=== PATIENT | female | born 1960 | race Caucasian/White ===

== ENCOUNTER 2019-10-14 20:34 | Emergency (ER) | payer MEDICARE, MEDICAID ==
[~2019-10-14] VITALS: Ht 152.5 cm; Wt 85.0 kg
[~2019-10-14 20:34] MED LIST: ALBU8.5H2; ALPR0.25 PO; ARIP5TAB13 PO; AZEL137S2; CIPR500T78 PO; CITA10TA70 PO; CLIN-62 PO; CYCL10TA9 PO; DIPH50CA PO; DULO30CA PO; DULO30CA3 PO; DULO60CA6 PO; ESTR0.9T; ESTR0.9T PO; ETD400T PO; FLUT16SP22; FLUT1DIS26; FURO40TA4 PO; GABA-486 PO; GBPN400C PO; HYDR-34 PO; HYDR-3720 PO; LISI10TA2 PO; LORA10CA PO; MECL-124 PO; MELO-195 PO; METH10TA PO; METH2.5T PO; METO-333 PO; METR500T PO; ONDA-43 SL; ONDA4TAB8 PO; ONDAN4ODT PO; PANT40TA PO; POLY17PO23 PO; PRD20T PO; PREG50C PO; ROSU20TA14 PO; SCOP1PAT TD; TEMA7.5C2 PO; TRIA1TAB5 PO; [UNRECOGNIZED DRUG - CODE] PO
[2019-10-14] MEDS ORDERED: KETOROLAC 60 MG/2 ML VIAL IM STA (21:10)
[2019-10-14] MEDS ORDERED: ONDANSETRON 4 MG (ZOFRAN) ORAL DISSOLVE TAB PO STA (21:12)
[2019-10-14] MEDS ORDERED: diphenhydrAMINE 25 MG TAB (BENADRYL) PO ONE (21:15)
[2019-10-14] MEDS ORDERED: ONDA8TAB13 (21:19)
[2019-10-14] MEDS ORDERED: ESTR0.5T (21:19)
[2019-10-14] MEDS ORDERED: FURO40TA4 (21:19)
[2019-10-14] MEDS ORDERED: HYDR-3857 (21:19)
[2019-10-14] MEDS ORDERED: AZEL205.2 (21:19)
[2019-10-14] MEDS ORDERED: SUMA100T3 (21:19)
[2019-10-14] MEDS ORDERED: MELO15TA39 (21:19)
[2019-10-14] MEDS ORDERED: FAMO20TA5 (21:19)
--- NOTE | 2019-10-14 22:04 | ED Headache ---
General Chief Complaint: Head/Cervical Problems Stated Complaint: MIGRAINE Nursing Triage Note: GLOBAL MIGRAINE WITH LIGHT SENSITIVITY TODAY WORSE SINCE 1500. PT REPORTS DLY MIGRAINES. Nursing Sepsis Screen: No Definite Risk History of Present Illness Date Seen by Provider: Oct 14, 2019 Time Seen by Provider: 20:55 Initial Comments 59-year-old female presents for chronic migraine. She states that it began getting worse at approximately 1500 today. She is on Imitrex, she tried this with no resolution in her symptoms. She denies any fevers or coughs. Timing/Duration: 4-6 hours Severity/Quality: moderate Location: frontal Prior Headaches/Recent Trauma: chronic headaches Associated Symptoms: denies symptoms Allergies and Home Medications Allergies Coded Allergies: Penicillins (Unverified Allergy, Intermediate, HIVES, 09/15/10) aspirin (Unverified Allergy, Intermediate, HIVES, RASH, 09/15/10) Soap (Unverified Allergy, Unknown, RASH, 07/01/14) povidone-iodine (Unverified Allergy, Unknown, RASH, 07/01/14) Uncoded Allergies: LOTS OF ANTIBIOTICS (Allergy, Unknown, 07/01/14) DOES NOT KNOW NAMES Home Medications Albuterol 8.5 Gm Hfa.aer.ad, 2 PUFF Q6H, (Reported) Alprazolam 0.25 Mg Tablet, 0.25 MG PO TID PRN for ANXIETY, (Reported) Aripiprazole 5 Mg Tablet, 5 MG PO DAILY, (Reported) Citalopram Hydrobromide 10 Mg Tablet, 2 EACH PO HS, (Reported) Cyclobenzaprine Hcl 10 Mg Tablet, 1 EACH PO TID PRN for SPASMS, (Reported) Diphenhydramine Hcl 50 Mg Capsule, 1 CAP PO HS, (Reported) Duloxetine Hcl 60 Mg Capsule.dr, 1 EACH PO DAILY, (Reported) Duloxetine Hcl 30 Mg Cap, 30 MG PO DAILY, (Reported) Estrogens,Conjugated 0.9 Mg Tablet, 0.3 MG PO DAILY Prescribed by: RIDGE GAMINO on 11/11/14 0751 Furosemide 40 Mg Tablet, 2 EACH PO DAILY, (Reported) Gabapentin 400 Mg Cap, 800 MG PO TID, (Reported) Gabapentin 100 Mg Capsule, 100 MG PO HS, (Reported) Hydrocodone Bit/Acetaminophen 1 Each Tablet, 1 EACH PO Q4H PRN for PAIN Prescribed by: BERNARDINO ALCANTAR on 09/20/13 1845 Lisinopril 10 Mg Tablet, 10 MG PO DAILY, (Reported) Loratadine 10 Mg Capsule, 10 MG PO DAILY PRN for allergies, (Reported) Meclizine Hcl 25 Mg Tab, 1-2 TAB PO TID PRN for DIZZINESS FOR DIZZINESS Prescribed by: RIDGE GAMINO on 11/11/14 075 Meloxicam 15 Mg Tablet, 15 MG PO DAILY, (Reported) Methadone Hcl 10 Mg Tablet, 15 MG PO BID Prescribed by: RIDGE GAMINO on 11/11/14 075 Methotrexate Sodium 2.5 Mg Tablet, 6 TAB PO WEEKLY, (Reported) Metoprolol Tartrate 25 Mg Tablet, 1 EACH PO BID, (Reported) Ondansetron Hcl 4 Mg Tab, 4 MG PO Q8H, (Reported) Pantoprazole Sodium 40 Mg Tablet.dr, 20 MG PO BID, (Reported) TAKE 1 TAB BY MOUTH 2 TIMES A DAY BEFORE MEALS Phenobarbital 100 Mg Tab, 32.4 MG PO TID, (Reported) ONE TABLET IN AM TWO TABS HS Polyethylene Glycol 17 Gm Pack, 17 GM PO DAILY PRN for CONSTIPATION FOR CONSTIPATION Prescribed by: TEA CRYSTAL on 11/11/14 0344 Pregabalin 50 Mg Cap, 50 MG PO TID, (Reported) Rosuvastatin Calcium 20 Mg Tablet, 1 EACH PO HS, (Reported) Temazepam 7.5 Mg Capsule, 7.5 MG PO HS, (Reported) Patient Home Medication List Home Medication List Reviewed: Yes Review of Systems Review of Systems Constitutional: no symptoms reported, see HPI Eyes: See HPI, Photophobia Psychiatric/Neurological: See HPI, Headache All Other Systems Reviewed Negative Unless Noted: Yes Past Vyyjciv-Qxcmdv-Yyxhan Hx Past Med/Social Hx: Reviewed Nursing Past Med/Soc Hx Patient Social History Alcohol Use: Denies Use Recreational Drug Use: No Smoking Status: Never a Smoker 2nd Hand Smoke Exposure: No Recent Foreign Travel: No Contact w/Someone Who Travel: No Recent Infectious Disease Expo: No Recent Hopitalizations: No Physical Abuse: No Sexual Abuse: No Mistreated: No Fear: No Immunizations Up To Date Date of Pneumonia Vaccine: Aug 27, 2009 Date of Influenza Vaccine: May 29, 2014 Seasonal Allergies Seasonal Allergies: Yes Past Medical History Surgeries: Yes (SPLEENECTOMY) Orthopedic Respiratory: Yes Emphysema Cardiac: Yes Atrial Fibrillation, High Cholesterol, Hypertension Neurological: Yes (TRAUMATIC BRAIN INUJURY) Headaches /Migraines : No Reproductive Disorders: No BAKER BISCUIT History: Menopausal Genitourinary: Yes UTI-Chronic Gastrointestinal: Yes Gastroesophageal Reflux, Ulcer Musculoskeletal: Yes Arthritis, Chronic Back Pain Endocrine: Yes Diabetes, Insulin dep HEENT: No Cancer: No Psychosocial: Yes Anxiety, Depression Integumentary: No Blood Disorders: No Physical Exam Vital Signs Vital Signs - First Documented 10/14/19 20:44 Temp 36.9 Pulse 76 Resp 18 B/P (MAP) 120/82 (95) Pulse Ox 97 O2 Delivery Room Air Capillary Refill : Less Than 3 Seconds Height, Weight, BMI Height: 5'0.00" Weight: 179lbs. 0.3oz. 81.863203kw; 36.00 BMI Method:Stated General Appearance: WD/WN, no apparent distress HEENT: PERRL/EOMI, normal ENT inspection, TMs normal, pharynx normal Neck: non-tender, full range of motion, supple, normal inspection Cardiovascular: normal peripheral pulses, regular rate, rhythm Respiratory: chest non-tender, lungs clear, normal breath sounds Gastrointestinal: normal bowel sounds, non tender, soft Psychiatric: alert, oriented x 3 Crainal Nerves: normal hearing, normal speech, PERRL Coordination/Gait: normal finger to nose, normal gait Motor/Sensory: no motor deficit, no sensory deficit, no pronator drift Skin: normal color, warm/dry Lymphatic: no adenopathy Progress/Results/Core Measures Results/Orders My Orders Orders - BIBI HENSLEY Ketorolac Injection (Toradol Injection) (10/14/19 21:10) Diphenhydramine Tablet (Benadryl Tablet) (10/14/19 21:15) Ondansetron Oral Dissolve Tab (Zofran (10/14/19 21:12) Medications Given in ED Current Medications Medications Dose Ordered Sig/Osmar Route Start Time Stop Time Status Last Admin Dose Admin Diphenhydramine HCl 50 mg ONCE ONCE PO 10/14/19 21:15 10/14/19 21:16 DC 10/14/19 21:23 50 MG Vital Signs/I&O 10/14/19 10/14/19 20:44 22:06 Temp 36.9 36.8 Pulse 76 74 Resp 18 16 B/P (MAP) 120/82 (95) 122/81 (95) Pulse Ox 97 98 O2 Delivery Room Air Room Air Blood Pressure Mean: 95 Departure Impression Primary Impression: Headache Qualified Codes: G44.211 - Episodic tension-type headache, intractable Disposition: 01 HOME, SELF-CARE Condition: Improved Departure-Patient Inst. Decision time for Depature: 20:00 Referrals: OTHER,UNLISTED (PCP) Primary Care Physician Patient Instructions: Headache, Adult (DC) Add. Discharge Instructions: Increase water, 16 ounces every 2-3 hours while awake. Continue to take Imitrex as prescribed. You may take Excedrin onset of headache as needed. Follow-up with your primary care provider or neurologist if symptoms are not improving or worsen. Return to the emergency department for new, urgent health care matters. All discharge instructions reviewed with patient and/or family. Voiced understa nding. BIBI HENSLEY Oct 14, 2019 22:04
[2019-10-14 22:06] VITALS: BP 122/81
== END 2019-10-14 22:07 | disposition home or self-care (01) ==
LOC: EDUNIT# 20:34 → ER 20:36
DX: R51 Headache (principal); I10 Essential (primary) hypertension; E78.00 Pure hypercholesterolemia, unspecified; I48.91 Unspecified atrial fibrillation; E11.9 Type 2 diabetes mellitus without complications; F41.9 Anxiety disorder, unspecified; F32.9 Major depressive disorder, single episode, unspecified; K21.9 Gastro-esophageal reflux disease without esophagitis; Z88.0 Allergy status to penicillin; Z88.6 Allergy status to analgesic agent; Z88.8 Allergy status to other drugs, medicaments and biological substances; Z88.1 Allergy status to other antibiotic agents; Z86.69 Personal history of other diseases of the nervous system and sense organs
CPT/HCPCS: 96372; 99284

== ENCOUNTER 2022-02-12 06:21 | Emergency (ER) | payer MEDICARE, MEDICAID ==
[~2022-02-12] VITALS: Ht 152.4 cm; Wt 73.1 kg
[~2022-02-12 06:21] MED LIST changes: +AZEL205.2; +ESTR0.5T; +FAMO20TA5; +FURO40TA4; +HYDR-4506; +MELO15TA39; +ONDA8TAB13; +SUMA100T3
--- NOTE | 2022-02-12 06:37 | ED General ---
General Stated Complaint: NERVOUS & SHAKEY Source of Information: Patient Exam Limitations: No Limitations History of Present Illness Date Seen by Provider: Feb 12, 2022 Time Seen by Provider: 06:25 Initial Comments 61yoF with PMH of TBI, seizures, migraines, anxiety, depression, HTN, and HLD coming in due to feeling nervous and shaky. This started around midnight, is constant, moderate, and sometimes feels this way before seizures come on. She takes phenobarbital 35mg TID for seizures and last dose was at 5am. Laying down makes her more nervous. Denies any palpitations, chest pain, SOB, sweating, weight loss, abd pain, n/v/d, fever, weakness, numbness, or any other concerns. Denies any history of blood clots. Of note, the patient's this month and she has had a lot of extra stress at home. Allergies and Home Medications Allergies Coded Allergies: Penicillins (Unverified Allergy, Intermediate, HIVES, 09/15/10) aspirin (Unverified Allergy, Intermediate, HIVES, RASH, 09/15/10) Soap (Unverified Allergy, Unknown, RASH, 07/01/14) povidone-iodine (Unverified Allergy, Unknown, RASH, 07/01/14) Uncoded Allergies: LOTS OF ANTIBIOTICS (Allergy, Unknown, 07/01/14) DOES NOT KNOW NAMES Patient Home Medication List Home Medication List Reviewed: Yes Albuterol (Proair Hfa) 8.5 Gm Hfa.aer.ad, 2 PUFF Q6H, (Reported) Entered as Reported by: KWADWO BUSTOS on 02/20/11 1038 Alprazolam (Xanax) 0.25 Mg Tablet, 0.25 MG PO TID PRN for ANXIETY, (Reported) Entered as Reported by: RIDGE GAMINO on 11/11/14 08 Aripiprazole (Abilify 5MG) 5 Mg Tablet, 5 MG PO DAILY, (Reported) Entered as Reported by: RIDGE GAMINO on 11/11/14 08 Azelastine HCl (Azelastine HCl) 205.5 Mcg/0.137 Ml [place].pump, (Reported) Entered as Reported by: EDER BEATTY on 10/14/192118 Citalopram Hydrobromide (Celexa) 10 Mg Tablet, 2 EACH PO HS, (Reported) Entered as Reported by: RIDGE GAMINO on 11/11/14 08 Cyclobenzaprine Hcl (Cyclobenzaprine Hcl) 10 Mg Tablet, 1 EACH PO TID PRN for SPASMS, (Reported) Entered as Reported by: JASPREET CELESTIN on 09/15/101719 Diphenhydramine Hcl (Benadryl) 50 Mg Capsule, 1 CAP PO HS, (Reported) Entered as Reported by: RIDGE GAMINO on 11/11/14 08 Duloxetine Hcl (Cymbalta) 60 Mg Capsule.dr, 1 EACH PO DAILY, (Reported) Entered as Reported by: JASPREET CELESTIN on 09/15/101719 Duloxetine Hcl (Cymbalta Capsule) 30 Mg Cap, 30 MG PO DAILY, (Reported) Entered as Reported by: RIDGE GAMINO on 11/11/14807 Estradiol (Estradiol Tablet) 0.5 Mg Tablet, (Reported) Entered as Reported by: EDER BEATTY on 10/14/192118 Estrogens,Conjugated (Premarin) 0.9 Mg Tablet, 0.3 MG PO DAILY Prescribed by: RIDGE GAMINO on 11/11/14 075 Famotidine (Famotidine) 20 Mg Tablet, (Reported) Entered as Reported by: EDER BEATTY on 10/14/192118 Furosemide (Furosemide) 40 Mg Tablet, 2 EACH PO DAILY, (Reported) Entered as Reported by: RIDGE GAMINO on 11/11/14807 Furosemide (Furosemide) 40 Mg Tablet, (Reported) Entered as Reported by: EDER BEATTY on 10/14/192118 Gabapentin (Neurontin) 400 Mg Cap, 800 MG PO TID, (Reported) Entered as Reported by: JASPREET CELESTIN on 09/15/10 172 Gabapentin (Gabapentin) 100 Mg Capsule, 100 MG PO HS, (Reported) Entered as Reported by: KAYDEN GALLEGO on 11/11/14 0532 Hydrocodone Bit/Acetaminophen (Hydrocodone-Apap 10-325 Tablet) 1 Each Tablet, 1 EACH PO Q4H PRN for PAIN Prescribed by: BERNARDINO ALCANTAR on 09/20/13 1845 Hydrocodone/Acetaminophen (Hydrocodon-Acetaminoph 2.5-325) 1 Each Tablet, (Repor gerald) Entered as Reported by: EDER BEATTY on 10/14/192118 Lisinopril (Lisinopril) 10 Mg Tablet, 10 MG PO DAILY, (Reported) Entered as Reported by: RIDGE GAMINO on 11/11/14807 Loratadine (Claritin) 10 Mg Capsule, 10 MG PO DAILY PRN for allergies, (Reported) Entered as Reported by: RIDGE GAMINO on 11/11/14807 Meclizine Hcl (Antivert) 25 Mg Tab, 1-2 TAB PO TID PRN for DIZZINESS Prescribed by: RIDGE GAMINO on 11/11/14750 Meloxicam (Meloxicam) 15 Mg Tablet, 15 MG PO DAILY, (Reported) Entered as Reported by: RIDGE GAMINO on 11/11/14807 Meloxicam (Meloxicam) 15 Mg Tablet, (Reported) Entered as Reported by: EDER BEATTY on 10/14/192118 Methadone Hcl (Dolophine Hcl) 10 Mg Tablet, 15 MG PO BID Prescribed by: RIDGE GAMINO on 11/11/14750 Methotrexate Sodium (Methotrexate) 2.5 Mg Tablet, 6 TAB PO WEEKLY, (Reported) Entered as Reported by: RIDGE GAMINO on 11/11/14807 Metoprolol Tartrate (Lopressor 25 Mg Tab) 25 Mg Tablet, 1 EACH PO BID, (Reported) Entered as Reported by: RIDGE GAMINO on 11/11/14807 Ondansetron (Ondansetron Odt) 8 Mg Tab.rapelana, (Reported) Entered as Reported by: EDER BEATTY on 10/14/192118 Ondansetron Hcl (Zofran Oral Dissolve) 4 Mg Tab, 4 MG PO Q8H, (Reported) Entered as Reported by: RIDGE GAMINO on 11/11/14807 Pantoprazole Sodium (Pantoprazole Sodium) 40 Mg Tablet.dr, 20 MG PO BID, (Reported) Entered as Reported by: JASPREET CELESTIN on 09/15/101719 Phenobarbital (Phenobarbital) 100 Mg Tab, 32.4 MG PO TID, (Reported) Entered as Reported by: JASPREET CELESTIN on 09/15/101719 Polyethylene Glycol (Miralax 17 Gm Packet) 17 Gm Pack, 17 GM PO DAILY PRN for CONSTIPATION Prescribed by: TEA CRYSTAL on 11/11/14 0344 Potassium Chloride (Potassium Chloride) 20 Meq Tablet.er, 40 MEQ PO DAILY Prescribed by: LAINEY HANSEN on 02/12/22 0818 Pregabalin (Lyrica Capsule) 50 Mg Cap, 50 MG PO TID, (Reported) Entered as Reported by: RIDGE GAMINO on 11/11/14 08 Rosuvastatin Calcium (Crestor) 20 Mg Tablet, 1 EACH PO HS, (Reported) Entered as Reported by: RIDGE GAMINO on 11/11/14807 Sumatriptan Succinate (Sumatriptan Succinate) 100 Mg Tablet, (Reported) Entered as Reported by: EDER BEATTY on 10/14/192118 Temazepam (Restoril) 7.5 Mg Capsule, 7.5 MG PO HS, (Reported) Entered as Reported by: RIDGE GAMINO on 11/11/14807 Review of Systems Review of Systems Constitutional: No fever EENTM: No blurred vision Respiratory: No cough, No short of breath Cardiovascular: No chest pain Gastrointestinal: No abdominal pain Genitourinary: no symptoms reported Musculoskeletal: no symptoms reported Skin: no symptoms reported Psychiatric/Neurological: Anxiety Hematologic/Lymphatic: No Symptoms Reported Immunological/Allergic: no symptoms reported All Other Systems Reviewed Negative Unless Noted: Yes Past Yiddyah-Ljirrq-Mwastw Hx Patient Social History Substance use?: No Seasonal Allergies Seasonal Allergies: Yes Past Medical History Surgeries: Yes (SPLEENECTOMY) Orthopedic Respiratory: Yes Emphysema Cardiac: Yes Atrial Fibrillation, High Cholesterol, Hypertension Neurological: Yes (TRAUMATIC BRAIN INUJURY) Headaches /Migraines Reproductive Disorders: No [employer] History: Menopausal Genitourinary: Yes UTI-Chronic Gastrointestinal: Yes Gastroesophageal Reflux, Ulcer Musculoskeletal: Yes Arthritis, Chronic Back Pain Endocrine: Yes Diabetes, Insulin dep HEENT: No Cancer: No Psychosocial: Yes Anxiety, Depression Integumentary: No Blood Disorders: No Physical Exam Vital Signs Vital Signs - First Documented 02/12/22 06:36 Temp 36.8 Pulse 66 Resp 18 B/P (MAP) 114/64 (81) Pulse Ox 94 O2 Delivery Room Air Capillary Refill : Height, Weight, BMI Height: 5'0.00" Weight: 179lbs. 0.3oz. 81.199818bq; 36.00 BMI Method:Stated General Appearance: No Apparent Distress, WD/WN Eyes: Bilateral Eye Normal Inspection HEENT: PERRL/EOMI, Normal ENT Inspection, Pharynx Normal Neck: Full Range of Motion, Normal Inspection, Non Tender, Supple Respiratory: Chest Non Tender, Lungs Clear, Normal Breath Sounds, No Accessory Muscle Use, No Respiratory Distress Cardiovascular: Regular Rate, Rhythm, No Edema, Normal Peripheral Pulses Gastrointestinal: Normal Bowel Sounds, Non Tender, Soft; No Distended, No Guar ding Back: Normal Inspection Extremity: Normal Capillary Refill, Normal Inspection, Normal Range of Motion, Non Tender, No Calf Tenderness, No Pedal Edema Neurologic/Psychiatric: Alert, Oriented x3, No Motor/Sensory Deficits, Normal Mood/Affect Skin: Normal Color, Warm/Dry Lymphatic: No Adenopathy Progress/Results/Core Measures Suspected Sepsis SIRS Temperature: Pulse: Respiratory Rate: Laboratory Tests 02/12/22 07:35: White Blood Count 9.1 Blood Pressure / Mean: Laboratory Tests 02/12/22 07:35: Creatinine 1.18, Platelet Count 242 Results/Orders Lab Results Laboratory Tests Test 02/12/22 06:40 02/12/22 07:35 Range/Units Glucometer 111 H 70-110 MG/DL White Blood Count 9.1 4.3-11.0 10^3/uL Red Blood Count 4.02 3.80-5.11 10^6/uL Hemoglobin 14.5 11.5-16.0 g/dL Hematocrit 41 35-52 % Mean Corpuscular Volume 103 H 80-99 fL Mean Corpuscular Hemoglobin 36 H 25-34 pg Mean Corpuscular Hemoglobin Concent 35 32-36 g/dL Red Cell Distribution Width 13.8 10.0-14.5 % Platelet Count 242 130-400 10^3/uL Mean Platelet Volume 11.0 9.0-12.2 fL Immature Granulocyte % (Auto) 0 % Neutrophils (%) (Auto) 31 L 42-75 % Lymphocytes (%) (Auto) 52 H 12-44 % Monocytes (%) (Auto) 14 H 0-12 % Eosinophils (%) (Auto) 2 0-10 % Basophils (%) (Auto) 1 0-10 % Neutrophils # (Auto) 2.8 1.8-7.8 10^3/uL Lymphocytes # (Auto) 4.8 H 1.0-4.0 10^3/uL Monocytes # (Auto) 1.3 H 0.0-1.0 10^3/uL Eosinophils # (Auto) 0.1 0.0-0.3 10^3/uL Basophils # (Auto) 0.1 0.0-0.1 10^3/uL Immature Granulocyte # (Auto) 0.0 0.0-0.1 10^3/uL Sodium Level 140 135-145 MMOL/L Potassium Level 2.7 L 3.6-5.0 MMOL/L Chloride Level 92 L 98-107 MMOL/L Carbon Dioxide Level 31 21-32 MMOL/L Anion Gap 17 H 5-14 MMOL/L Blood Urea Nitrogen 25 H 7-18 MG/DL Creatinine 1.18 0.60-1.30 MG/DL Estimat Glomerular Filtration Rate 52 BUN/Creatinine Ratio 21 Glucose Level 100 70-105 MG/DL Calcium Level 9.5 8.5-10.1 MG/DL Magnesium Level 2.0 1.6-2.4 MG/DL My Orders Orders - LAINEY HANSEN MD Accucheck Stat ONCE (02/12/22 06:38) Basic Metabolic Panel (02/12/22 06:54) Cbc With Automated Diff (02/12/22 06:54) Magnesium (02/12/22 06:54) Ekg Tracing (02/12/22 06:54) Lorazepam Tablet (Ativan Tablet) (02/12/22 06:55) Potassium Chloride (Tablet) (K Dur Table (02/12/22 08:15) Medications Given in ED Current Medications Medications Dose Ordered Sig/Osmar Route Start Time Stop Time Status Last Admin Dose Admin Potassium Chloride 60 meq ONCE ONCE PO 02/12/22 08:15 02/12/22 08:16 DC 02/12/22 08:17 60 MEQ Vital Signs/I&O 02/12/22 06:36 Temp 36.8 Pulse 66 Resp 18 B/P (MAP) 114/64 (81) Pulse Ox 94 O2 Delivery Room Air Capillary Refill : Progress Note : Progress Note 61-year-old female with above history coming in due to nervousness and feeling shaky. ABCs were intact and vitals were stable on presentation. Qocxu-ty-ewqd glucose with a glucose of 111. The patient was having some irregular beats on the monitor so an EKG was obtained and it is just sinus arrhythmia. An IV was placed and basic labs were obtained to ensure she is not anemic or having any electrolyte abnormalities. Labs significant for potassium of 2.7. The patient is taking Lasix and takes 10 mill equivalents of potassium with it daily. We will give her some oral potassium here and I will send a prescription for 40 mill equivalents daily for the next 2 weeks. I will have her follow-up with her regular doctor in the next couple weeks for recheck as she likely needs to be taking more supplementation than the 10 mill equivalents. ECG Initial ECG Impression Date: Feb 12, 2022 Initial ECG Impression Time: 07:20 Initial ECG Rate: 70 Initial ECG Rhythm: Normal Sinus Comment Narrow QRS, incomplete right bundle branch block, no significant ST changes Departure Impression Primary Impression: Shakiness Additional Impression: Hypokalemia Disposition: 01 HOME, SELF-CARE Condition: Stable Departure-Patient Inst. Decision time for Depature: 08:20 Referrals: MANUEL CANNON MD (PCP/Family) Primary Care Physician Patient Instructions: Hypokalemia Add. Discharge Instructions: Your electrolytes were a little off which can cause symptoms similar to what you are having. I recommend taking a potassium supplement for the next week. I wrote for 40meq which you will start taking tomorrow. Do NOT mix this with your potassium supplement that you have at home. You should also double your magnesium supplement for the next 2 weeks. This may cause some loose stools. Follow-up with your doctor in the next couple weeks to get a repeat check to make sure your potassium levels have normalized. Scripts Potassium Chloride (Potassium Chloride) 20 Meq Tablet.er 40 MEQ PO DAILY for 14 Days, #14 TAB Prov: LAINEY HANSEN MD 02/12/22 Work/School Note: Work Release Form Date Seen in the Emergency Department: Feb 12, 2022 Return to Work: Feb 13, 2022 Restrictions: No Restrictions LAINEY HANSEN MD Feb 12, 2022 06:37
[2022-02-12] MEDS ORDERED: LORazepam 0.5 MG (ATIVAN) TABLET PO STA (06:55)
[2022-02-12 07:44] LABS: BASOPHILS # (AUTO) 0.1 10^3/uL (0.0-0.1); BASOPHILS % (AUTO) 1 % (0-10); EOSINOPHILS # (AUTO) 0.1 10^3/uL (0.0-0.3); EOSINOPHILS % (AUTO) 2 % (0-10); HEMATOCRIT 41 % (35-52); HEMOGLOBIN 14.5 g/dL (11.5-16.0); LYMPHOCYTES # (AUTO) 4.8 10^3/uL (1.0-4.0); LYMPHOCYTES % (AUTO) 52 % (12-44); MEAN CORPUSCULAR HEMOGLOBIN 36 pg (25-34); MEAN CORPUSCULAR HGB CONC 35 g/dL (32-36); MEAN CORPUSCULAR VOLUME 103 fL (80-99); MONOCYTES # (AUTO) 1.3 10^3/uL (0.0-1.0); MONOCYTES % (AUTO) 14 % (0-12); NEUTROPHILS # (AUTO) 2.8 10^3/uL (1.8-7.8); NEUTROPHILS % (AUTO) 31 % (42-75); PLATELET COUNT 242 10^3/uL (130-400); WHITE BLOOD COUNT 9.1 10^3/uL (4.3-11.0)
[2022-02-12 08:03] LABS: POTASSIUM 2.7 MMOL/L (3.6-5.0)
[2022-02-12 08:04] LABS: CALCIUM 9.5 MG/DL (8.5-10.1)
[2022-02-12 08:08] LABS: CREATININE SERUM 1.18 MG/DL (0.60-1.30)
[2022-02-12] MEDS ORDERED: KCL 20 MEQ TAB (K-DUR) PO ONE (08:15)
[2022-02-12] MEDS ORDERED: POTA-51 PO (08:18)
[2022-02-12 08:31] VITALS: BP 132/76
== END 2022-02-12 08:31 | disposition home or self-care (01) ==
LOC: EDUNIT# 06:21 → ER 06:24
DX: R25.9 Unspecified abnormal involuntary movements (principal); E87.6 Hypokalemia; I45.10 Unspecified right bundle-branch block; E11.9 Type 2 diabetes mellitus without complications; Z79.4 Long term (current) use of insulin
CPT/HCPCS: 36415; 80048; 82947; 83735; 85025; 93005

== ENCOUNTER 2022-07-04 17:47 | Emergency (ER) | payer MEDICARE, MEDICAID ==
[~2022-07-04] VITALS: Ht 152.4 cm; Wt 76.6 kg
[~2022-07-04 17:47] MED LIST changes: +POTA-51 PO
[2022-07-04] MEDS ORDERED: DEXT30SU19 PO (18:09)
[2022-07-04] MEDS ORDERED: FLUT15.845 NS (18:09)
--- NOTE | 2022-07-04 18:09 | ED Cough/URI ---
General Chief Complaint: Cough/Cold/Flu Symptoms Stated Complaint: SINUS INFECTION SYMPTOMS Nursing Triage Note: PT AMB TO [facility] 6 WITH COMPLAINT OF DRY COUGH, NASAL CONGESTION AND SNEEZING. STATES SYMPTOMS STARTED 4 DAYS GO. Source: patient Exam Limitations: no limitations (JULIO XIE APRN) History of Present Illness Date Seen by Provider: Jul 04, 2022 Time Seen by Provider: 18:00 Initial Comments Patient is a 62-year-old female who presents to the emergency department for evaluation of approximately 4 days of dry cough, nasal congestion, and sneezing. Patient denies any fever or body aches. Denies any known sick contacts in the recent past. She has been taking some betd-cuw-ovnjzid multi symptom cold and flu medication. (JULIO XIE APRN) Allergies and Home Medications Allergies Coded Allergies: Penicillins (Unverified Allergy, Intermediate, HIVES, 09/15/10) aspirin (Unverified Allergy, Intermediate, HIVES, RASH, 09/15/10) Soap (Unverified Allergy, Unknown, RASH, 07/01/14) povidone-iodine (Unverified Allergy, Unknown, RASH, 07/01/14) Uncoded Allergies: LOTS OF ANTIBIOTICS (Allergy, Unknown, 07/01/14) DOES NOT KNOW NAMES Patient Home Medication List Home Medication List Reviewed: Yes (JULIO XIE APRN) Albuterol (Proair Hfa) 8.5 Gm Hfa.aer.ad, 2 PUFF Q6H, (Reported) Entered as Reported by: KWADWO BUSTOS on 02/20/11 1038 Alprazolam (Xanax) 0.25 Mg Tablet, 0.25 MG PO TID PRN for ANXIETY, (Reported) Entered as Reported by: RIDGE GAMINO on 11/11/14 08 Aripiprazole (Abilify 5MG) 5 Mg Tablet, 5 MG PO DAILY, (Reported) Entered as Reported by: RIDGE GAMINO on 11/11/14 08 Azelastine HCl (Azelastine HCl) 205.5 Mcg/0.137 Ml Berry.pump, (Reported) Entered as Reported by: EDER BEATTY on 10/14/192118 Citalopram Hydrobromide (Celexa) 10 Mg Tablet, 2 EACH PO HS, (Reported) Entered as Reported by: RIDGE GAMINO on 11/11/14807 Cyclobenzaprine Hcl (Cyclobenzaprine Hcl) 10 Mg Tablet, 1 EACH PO TID PRN for SPASMS, (Reported) Entered as Reported by: JASPREET CELESTIN on 09/15/101719 Dextromethorphan Polistirex (Dextromethorphan Polistirex) 30 Mg/5 Ml Shea.er.12h, 60 MG PO BID PRN for COUGH Prescribed by: Julio Xie on 07/04/221808 Diphenhydramine Hcl (Benadryl) 50 Mg Capsule, 1 CAP PO HS, (Reported) Entered as Reported by: RIDGE GAMINO on 11/11/14807 Duloxetine Hcl (Cymbalta) 60 Mg Capsule.dr, 1 EACH PO DAILY, (Reported) Entered as Reported by: JASPREET CELESTIN on 09/15/101719 Duloxetine Hcl (Cymbalta Capsule) 30 Mg Cap, 30 MG PO DAILY, (Reported) Entered as Reported by: RIDGE GAMINO on 11/11/14807 Estradiol (Estradiol Tablet) 0.5 Mg Tablet, (Reported) Entered as Reported by: EDER BEATTY on 10/14/192118 Estrogens,Conjugated (Premarin) 0.9 Mg Tablet, 0.3 MG PO DAILY Prescribed by: RIDGE GAMINO on 11/11/14750 Famotidine (Famotidine) 20 Mg Tablet, (Reported) Entered as Reported by: EDER BEATTY on 10/14/192118 Fluticasone Propionate (Fluticasone Propionate) 50 Mcg/Actuation Berry.susp, 15.8 ML NS BID Prescribed by: Julio Xie on 07/04/221808 Furosemide (Furosemide) 40 Mg Tablet, 2 EACH PO DAILY, (Reported) Entered as Reported by: RIDGE GAMINO on 11/11/14807 Furosemide (Furosemide) 40 Mg Tablet, (Reported) Entered as Reported by: EDER BEATTY on 10/14/192118 Gabapentin (Neurontin) 400 Mg Cap, 800 MG PO TID, (Reported) Entered as Reported by: JASPREET CELESTIN on 09/15/101719 Gabapentin (Gabapentin) 100 Mg Capsule, 100 MG PO HS, (Reported) Entered as Reported by: KAYDEN GALLEGO on 11/11/14 0532 Hydrocodone Bit/Acetaminophen (Hydrocodone-Apap 10-325 Tablet) 1 Each Tablet, 1 EACH PO Q4H PRN for PAIN Prescribed by: BERNARDINO ALCANTAR on 09/20/131844 Hydrocodone/Acetaminophen (Hydrocodon-Acetaminoph 2.5-325) 1 Each Tablet, (Reported) Entered as Reported by: EDER BEATTY on 10/14/192118 Lisinopril (Lisinopril) 10 Mg Tablet, 10 MG PO DAILY, (Reported) Entered as Reported by: RIDGE GAMINO on 11/11/14807 Loratadine (Claritin) 10 Mg Capsule, 10 MG PO DAILY PRN for allergies, (Reported) Entered as Reported by: RIDGE GAMINO on 11/11/14807 Meclizine Hcl (Antivert) 25 Mg Tab, 1-2 TAB PO TID PRN for DIZZINESS Prescribed by: RIDGE GAMINO on 11/11/14750 Meloxicam (Meloxicam) 15 Mg Tablet, 15 MG PO DAILY, (Reported) Entered as Reported by: RIDGE GAMINO on 11/11/14807 Meloxicam (Meloxicam) 15 Mg Tablet, (Reported) Entered as Reported by: EDER BEATTY on 10/14/192118 Methadone Hcl (Dolophine Hcl) 10 Mg Tablet, 15 MG PO BID Prescribed by: RIDGE GAMINO on 11/11/14750 Methotrexate Sodium (Methotrexate) 2.5 Mg Tablet, 6 TAB PO WEEKLY, (Reported) Entered as Reported by: RIDGE GAMINO on 11/11/14807 Metoprolol Tartrate (Lopressor 25 Mg Tab) 25 Mg Tablet, 1 EACH PO BID, (Reported) Entered as Reported by: RIDGE GAMINO on 11/11/14807 Ondansetron (Ondansetron Odt) 8 Mg Tab.rapelana, (Reported) Entered as Reported by: EDER BEATTY on 10/14/192118 Ondansetron Hcl (Zofran Oral Dissolve) 4 Mg Tab, 4 MG PO Q8H, (Reported) Entered as Reported by: RIDGE GAMINO on 11/11/14807 Pantoprazole Sodium (Pantoprazole Sodium) 40 Mg Tablet.dr, 20 MG PO BID, (Reported) Entered as Reported by: JASPREET CELESTIN on 09/15/10 1720 Phenobarbital (Phenobarbital) 100 Mg Tab, 32.4 MG PO TID, (Reported) Entered as Reported by: JASPREET CELESTIN on 09/15/10 1720 Polyethylene Glycol (Miralax 17 Gm Packet) 17 Gm Pack, 17 GM PO DAILY PRN for CONSTIPATION Prescribed by: TEA CRYSTAL on 11/11/14 0344 Potassium Chloride (Potassium Chloride) 20 Meq Tablet.er, 40 MEQ PO DAILY Prescribed by: LAINEY HANSEN on 02/12/22 0818 Pregabalin (Lyrica Capsule) 50 Mg Cap, 50 MG PO TID, (Reported) Entered as Reported by: RIDGE GAMINO on 11/11/14 08 Rosuvastatin Calcium (Crestor) 20 Mg Tablet, 1 EACH PO HS, (Reported) Entered as Reported by: RIDGE GAMINO on 11/11/14 08 Sumatriptan Succinate (Sumatriptan Succinate) 100 Mg Tablet, (Reported) Entered as Reported by: EDER BEATTY on 10/14/192118 Temazepam (Restoril) 7.5 Mg Capsule, 7.5 MG PO HS, (Reported) Entered as Reported by: RIDGE GAMINO on 11/11/14 0808 Review of Systems Review of Systems Constitutional: no symptoms reported EENTM: see HPI, nose congestion, throat pain Respiratory: no symptoms reported Cardiovascular: no symptoms reported Gastrointestinal: no symptoms reported Genitourinary: no symptoms reported Musculoskeletal: no symptoms reported Skin: no symptoms reported Psychiatric/Neurological: No Symptoms Reported Hematologic/Lymphatic: No Symptoms Reported Immunological/Allergic: no symptoms reported (JULIO XIE APRN) Past Iexljmr-Ifsjxo-Lrzvol Hx Patient Social History Tobacco Use?: No Use of E-Cig and/or Vaping dev: No Substance use?: No Alcohol Use?: No Pt feels they are or have been: No (JULIO XIE APRN) Immunizations Up To Date Influenza Vaccine Up-to-Date: Yes; Up-to-Date First/Initial COVID19 Vaccinat: 12/15 Second COVID19 Vaccination Ezequiel: 12/15 Third COVID19 Vaccination Date: 12/15 (JULIO XIE APRN) Seasonal Allergies Seasonal Allergies: Yes (JULIO XIE APRN) Past Medical History Surgeries: Yes (SPLEENECTOMY) Orthopedic Respiratory: Yes Emphysema Cardiac: Yes Atrial Fibrillation, High Cholesterol, Hypertension Neurological: Yes (TRAUMATIC BRAIN INUJURY) Headaches /Migraines Reproductive Disorders: No ROSE GROWER History: Menopausal Genitourinary: Yes UTI-Chronic Gastrointestinal: Yes Gastroesophageal Reflux, Ulcer Musculoskeletal: Yes Arthritis, Chronic Back Pain Endocrine: Yes Diabetes, Insulin dep HEENT: No Cancer: No Psychosocial: Yes Anxiety, Depression Integumentary: No Blood Disorders: No (JULIO XIE APRN) Physical Exam Vital Signs - First Documented 07/04/22 17:55 Temp 35.7 Pulse 91 Resp 16 B/P (MAP) 106/88 (94) Pulse Ox 96 O2 Delivery Room Air (TEA CLALAWAY MD) Capillary Refill : Less Than 3 Seconds (JULIO XIE APRN) Height: 5'0.00" Weight: 179lbs. 0.3oz. 81.080182ar; 32.00 BMI Method:Stated General Appearance: WD/WN, no apparent distress HEENT: PERRL/EOMI, normal ENT inspection, TMs normal, pharynx normal Neck: non-tender, full range of motion, supple, normal inspection Respiratory: chest non-tender, lungs clear, normal breath sounds, no respiratory distress, no accessory muscle use Cardiovascular: regular rate, rhythm Gastrointestinal: normal bowel sounds, non tender, soft Neurologic/Psychiatric: no motor/sensory deficits, alert, normal mood/affect, oriented x 3 Skin: normal color, warm/dry (JULIO XIE APRN) Progress/Results/Core Measures Suspected Sepsis SIRS Temperature: Pulse: 91 Respiratory Rate: 16 Blood Pressure 106 /88 Mean: 94 (JULIO XIE APRN) Results/Orders Vital Signs/I&O 07/04/22 07/04/22 07/04/22 17:55 18:13 18:16 Temp 35.7 36.4 Pulse 91 84 Resp 16 17 B/P (MAP) 106/88 (94) 133/74 Pulse Ox 96 98 O2 Delivery Room Air Room Air Room Air (TEA CALLAWAY MD) Vital Signs/I&O Capillary Refill : Less Than 3 Seconds (JULIO XIE APRN) Blood Pressure Mean: 94 Progress Note : Progress Note Patient is nontoxic and well-hydrated on exam. No adventitious lung sounds or increased work of breathing noted. Bilateral tympanic membranes normal. No significant frontal or maxillary sinus tenderness palpation on exam. No facial redness/swelling appreciated. Vital signs are reassuring. No indication for antibiotic therapy at this time. Symptoms likely viral in etiology given symptoms recently occurred. Discussed supportive care and will give a prescription for Flonase. Follow-up with PCP. Return precautions for urgent symptomology discussed. Patient verbalized understanding (JULIO XIE APRN) Departure Impression Primary Impression: Viral URI with cough Disposition: HOME, SELF-CARE Condition: Stable Departure-Patient Inst. Decision time for Depature: 18:05 (JULIO XIE APRN) Referrals: MANUEL CANNON MD (PCP/Family) Primary Care Physician Patient Instructions: Upper Respiratory Infection ED Scripts Dextromethorphan Polistirex (Dextromethorphan Polistirex) 30 Mg/5 Ml Shea.er.12h 60 MG PO BID PRN for COUGH for 7 Days, #150 ML 0 Refills Prov: JULIO XIE APRN 07/04/22 Fluticasone Propionate (Fluticasone Propionate) 50 Mcg/Actuation Berry.susp 15.8 ML NS BID for 14 Days, #1 EA Prov: JULIO XIE APRN 07/04/22 ATTENDING PHYSICIAN NOTE: I was physically present as attending physician in the emergency department during the care of this patient, but I was not directly involved in the decision making or delivery of care for this patient. (TEA CALLAWAY MD) JULIO XIE APRN Jul 04, 2022 18:09 TEA CALLAWAY MD Jul 05, 2022 07:27
[2022-07-04 18:13] VITALS: BP 133/74
== END 2022-07-04 18:13 | disposition home or self-care (01) ==
LOC: EDUNIT# 17:47 → ER 17:50
DX: J06.9 Acute upper respiratory infection, unspecified (principal)
CPT/HCPCS: 99282

== ENCOUNTER 2022-09-29 17:52 | Emergency (ER) | payer MEDICARE, MEDICAID ==
[~2022-09-29] VITALS: Ht 152 cm; Wt 71.0 kg
[~2022-09-29 17:52] MED LIST changes: +DEXT30SU19 PO; +FLUT15.845 NS
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
--- NOTE | 2022-09-29 19:06 | Diagnostic Imaging Report ---
PROCEDURE: CT head and CT cervical spine without contrast. TECHNIQUE: Multiple contiguous axial images were obtained through the brain and cervical spine without the use of intravenous contrast. Sagittal and coronal reformations through the cervical spine were then performed. Auto Exposure Controls were utilized during the CT exam to meet ALARA standards for radiation dose reduction. INDICATION: Head and neck pain. Fall. COMPARISON: No relevant comparison available. FINDINGS: There is a posterior scalp hematoma without CT evidence of underlying calvarial fracture. There are no CT findings of acute intracranial hemorrhage. There is no abnormal extra-axial collection. There is no intracranial mass effect or shift. There is no hydrocephalus. There is age-related global volume loss. There are no findings of territorial loss of kulkarni-white differentiation or vasogenic edema. The mastoids are clear. The paranasal sinuses are clear. Orbital contents are unremarkable. Cervical spine demonstrates reversal of the cervical lordosis. Alignment is normal. There are normal relationships of the craniocervical junction. The facets are normally aligned. There is no facet joint or disc space widening. Vertebral body heights are maintained. There are multilevel endplate changes most advanced at C5-C6 and C6-C7. There is no evidence however of an acute cervical spine fracture. The lung apices are clear. The soft tissues of the neck demonstrate no acute process. Note is made of a left-sided internal jugular central line. IMPRESSION: 1. Posterior parietal scalp hematoma without underlying calvarial fracture. 2. No CT findings of intracranial hemorrhage or of an acute intracranial abnormality 3. Degenerative features within the cervical spine with reversal of the cervical lordosis. Alignment is normal. There is no acute cervical spine fracture. Dictated by: Dictated on workstation # [id number]
[2022-09-29 19:45] LABS: BASOPHILS # (AUTO) 0.1 10^3/uL (0.0-0.1); BASOPHILS % (AUTO) 1 % (0-10); EOSINOPHILS # (AUTO) 0.4 10^3/uL (0.0-0.3); EOSINOPHILS % (AUTO) 4 % (0-10); HEMATOCRIT 36 % (35-52); HEMOGLOBIN 12.2 g/dL (11.5-16.0); LYMPHOCYTES % (AUTO) 42 % (12-44); MEAN CORPUSCULAR HEMOGLOBIN 35 pg (25-34); MEAN CORPUSCULAR HGB CONC 34 g/dL (32-36); MEAN CORPUSCULAR VOLUME 103 fL (80-99); MEAN PLATELET VOLUME 11.1 fL (9.0-12.2); MONOCYTES # (AUTO) 1.4 10^3/uL (0.0-1.0); MONOCYTES % (AUTO) 11 % (0-12); NEUTROPHILS # (AUTO) 5.1 10^3/uL (1.8-7.8); NEUTROPHILS % (AUTO) 42 % (42-75); PLATELET COUNT 262 10^3/uL (130-400)
[2022-09-29 20:02] LABS: CREATININE SERUM 0.86 MG/DL (0.60-1.30); POTASSIUM 3.7 MMOL/L (3.6-5.0)
[2022-09-29 21:01] LABS: BILIRUBIN,URINE NEGATIVE (NEGATIVE); CLARITY,URINE CLEAR; COLOR,URINE YELLOW; GLUCOSE, URINE (UA) NEGATIVE (NEGATIVE); KETONES,URINE NEGATIVE (NEGATIVE); LEUKOCYTE ESTERASE ,URINE NEGATIVE (NEGATIVE); NITRITE,URINE NEGATIVE (NEGATIVE); PH,URINE 6.5 (5-9); PROTEIN,URINE NEGATIVE (NEGATIVE)
[2022-09-29 21:22] LABS: BACTERIA,URINE TRACE /HPF; HYALINE CASTS, URINE RARE /LPF; SQUAMOUS EPITHELIAL CELL,UR RARE /HPF; WBC,URINE RARE /HPF
[2022-09-29 21:44] VITALS: BP 118/83
== END 2022-09-29 21:44 | disposition home or self-care (01) ==
LOC: EDUNIT# 17:52 → ER 17:54
DX: S06.0XAA Concussion with loss of consciousness status unknown, initial encounter (principal); S00.03XA Contusion of scalp, initial encounter; L29.9 Pruritus, unspecified; D72.829 Elevated white blood cell count, unspecified; E11.9 Type 2 diabetes mellitus without complications; M06.9 Rheumatoid arthritis, unspecified; Z79.69 Long term (current) use of other immunomodulators and immunosuppressants; Z79.4 Long term (current) use of insulin; Z87.820 Personal history of traumatic brain injury; W10.9XXA Fall (on) (from) unspecified stairs and steps, initial encounter; W22.8XXA Striking against or struck by other objects, initial encounter
CPT/HCPCS: 36415; 70450; 72125; 80048; 81000; 85025

== ENCOUNTER 2022-10-20 23:24 | Emergency (ER) | payer MEDICARE, MEDICAID ==
[~2022-10-20] VITALS: Ht 152 cm; Wt 71.0 kg
[2022-10-20 23:46] LABS: BILIRUBIN,URINE NEGATIVE (NEGATIVE); CLARITY,URINE CLOUDY; COLOR,URINE YELLOW; GLUCOSE, URINE (UA) NEGATIVE (NEGATIVE); KETONES,URINE TRACE (NEGATIVE); LEUKOCYTE ESTERASE ,URINE 3+ (NEGATIVE); NITRITE,URINE POSITIVE (NEGATIVE); PROTEIN,URINE TRACE (NEGATIVE)
[2022-10-20 23:58] LABS: BACTERIA,URINE LARGE /HPF; HYALINE CASTS, URINE 0-2 /LPF; RBC,URINE 0-2 /HPF; WBC,URINE >100 /HPF
[2022-10-21] MEDS ORDERED: cefTRIAXone 1,000 MG VIAL IM ONE (00:30)
[2022-10-21] MEDS ORDERED: PHENAZOPYRIDINE 100 MG (PYRIDIUM) TABLET PO ONE (00:30)
[2022-10-21] MEDS ORDERED: LIDOCAINE 1% INJ 20 ML VIAL INJ ONE (00:30)
[2022-10-21] MEDS ORDERED: PHEN-640 PO (00:33)
[2022-10-21] MEDS ORDERED: NITR-65 PO (00:33)
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
[2022-10-21] MEDS ORDERED: LIDOCAINE 1% INJ 10 ML VIAL ONE (00:35)
[2022-10-21 00:45] VITALS: BP 129/87
== END 2022-10-21 00:47 | disposition home or self-care (01) ==
LOC: EDUNIT# 23:24 → ER 23:26
DX: N39.0 Urinary tract infection, site not specified (principal); E11.9 Type 2 diabetes mellitus without complications; Z79.4 Long term (current) use of insulin; Z88.0 Allergy status to penicillin
CPT/HCPCS: 81000; 87088; 99284

== ENCOUNTER 2022-12-19 20:50 | Emergency (ER) | payer MEDICARE, MEDICAID ==
[~2022-12-19] VITALS: Ht 152.4 cm; Wt 69.1 kg
[~2022-12-19 20:50] MED LIST changes: +NITR-65 PO; +PHEN-640 PO
[2022-12-19] MEDS ORDERED: PROCHLORPERAZINE 10 MG/2ML INJ (COMPAZINE) IV ONE (21:45)
[2022-12-19] MEDS ORDERED: NS (IVPB) 250 ML IV ONE (21:45)
[2022-12-19] MEDS ORDERED: KETOROLAC 15 MG/ML VIAL IVP ONE (21:45)
[2022-12-19] MEDS ORDERED: diphenhydrAMINE 50 MG/ML INJ (BENADRYL) IVP ONE (21:45)
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
[2022-12-19 23:04] VITALS: BP 149/75
== END 2022-12-19 23:04 | disposition home or self-care (01) ==
LOC: EDUNIT# 20:50 → ER 20:51
DX: G43.909 Migraine, unspecified, not intractable, without status migrainosus (principal); E11.9 Type 2 diabetes mellitus without complications; Z79.4 Long term (current) use of insulin; Z79.899 Other long term (current) drug therapy

== ENCOUNTER → 2023-06-12 | Outpatient (CLI) | payer MEDICARE, MEDICAID ==
[~2023-06-12] MED LIST changes: -ESTR0.5T; +ESTR0.5T2; +POTA-330 PO; -POTA-51 PO
[2023-06-12 17:20] LABS: BASOPHILS # (AUTO) 0.1 10^3/uL (0.0-0.1); BASOPHILS % (AUTO) 1 % (0-10); EOSINOPHILS # (AUTO) 0.1 10^3/uL (0.0-0.3); EOSINOPHILS % (AUTO) 1 % (0-10); HEMATOCRIT 40 % (35-52); HEMOGLOBIN 13.2 g/dL (11.5-16.0); LYMPHOCYTES # (AUTO) 4.9 10^3/uL (1.0-4.0); LYMPHOCYTES % (AUTO) 51 % (12-44); MEAN CORPUSCULAR HEMOGLOBIN 35 pg (25-34); MEAN CORPUSCULAR HGB CONC 33 g/dL (32-36); MEAN CORPUSCULAR VOLUME 106 fL (80-99); MEAN PLATELET VOLUME 11.8 fL (9.0-12.2); MONOCYTES # (AUTO) 0.9 10^3/uL (0.0-1.0); MONOCYTES % (AUTO) 10 % (0-12); NEUTROPHILS # (AUTO) 3.6 10^3/uL (1.8-7.8); NEUTROPHILS % (AUTO) 37 % (42-75); PLATELET COUNT 232 10^3/uL (130-400); WHITE BLOOD COUNT 9.7 10^3/uL (4.3-11.0)
[2023-06-12 17:41] LABS: ALBUMIN 4.1 GM/DL (3.2-4.5); BILIRUBIN,TOTAL 0.4 MG/DL (0.1-1.0); CALCIUM 8.9 MG/DL (8.5-10.1); CREATININE SERUM 0.77 MG/DL (0.60-1.30); POTASSIUM 3.5 MMOL/L (3.6-5.0)
== END ==
LOC: LAB 16:55
PROVIDERS: ATTEND Internal Medicine Rheumatology
DX: Z51.81 Encounter for therapeutic drug level monitoring (principal); E55.9 Vitamin D deficiency, unspecified; M81.0 Age-related osteoporosis without current pathological fracture; M06.09 Rheumatoid arthritis without rheumatoid factor, multiple sites
CPT/HCPCS: 36415; 80053; 82306; 85025